=== PATIENT | male | born 1960 | race Caucasian/White ===

== ENCOUNTER 2024-08-30 07:43 | Observation (INO) ==
--- NOTE | 2024-08-30 08:03 | Emergency Department Note ---
HPI - Neuro Symptoms/Deficit General Chief Complaint: Facial Asymmetry/Drooping Stated Complaint: facial doop and tingling Time Seen by Provider: 08/30/24 07:45 Source: patient and EMS Mode of arrival: ambulance Limitations: no limitations History of Present Illness HPI Narrative: 64-year-old male presents to ER with complaint of right sided facial droop and tingling that was present when he awoke this morning, last known well was when he went to bed last night. On arrival patient has no trouble speaking, [facility], denies any weakness, mends exam is negative for any neurological deficits in his periphery; however, patient does have minor facial droop to the right side. Patient denies any chest pain but does have unifocal PVCs present on EKG. Onset (ago): unknown Last Observed Normal: 22:00 (When patient went to bed last night) Location: Reports right face History of same: No Severity: mild Quality: Reports numb, tingling and constant Relieving factors: Reports none Exacerbating factors: Reports none Context: Reports other (Awoke with symptoms) On Anticoagulants: No Associated symptoms: Reports denies other symptoms Treatments Prior to Arrival: Reports none Related Data Home Medications Medication Instructions Recorded Confirmed losartan 25 mg tablet 25 mg PO DAILY 08/30/24 08/30/24 metoprolol tartrate 25 mg tablet 25 mg PO Q12H 08/30/24 08/30/24 Allergies Allergy/AdvReac Type Severity Reaction Status Date / Time No Known Drug Allergies Allergy Verified 08/30/24 07:56 Review of Systems Status of ROS 10 or more systems reviewed and unremark able except as noted in history and below Constitutional Denies: fever, chills, change in weight, fatigue, malaise, night sweats or change in sleep pattern Eyes Denies: change in vision, blurry vision, blind spots, light sensitivity, eye discomfort, eye discharge, dry eyes, increased production of tears, floaters, seeing flashes or decreased night vision Ears, nose, mouth, and throat Denies: throat pain, neck pain, throat swelling, difficulty swallowing, hoarseness, mouth pain, swelling of lips/tongue, dry mouth, bad breath, ear pain, ear discharge, change in hearing, tinnitus, vertigo, nasal discharge, nasal congestion, nose bleeds or post nasal drip Cardiovascular Denies: chest pain, palpitations, edema, swelling of feet/ankles, lightheadedness, shortness of breath with exertion, shortness of breath when lying down, leg pain with exertion or bluish discoloration of hands/feet Respiratory Denies: shortness of breath, cough, wheezing, stridor, pain on inspiration, change in phlegm color, coughing up blood or chest congestion Gastrointestinal Denies: abdominal pain, nausea, vomiting, coffee grounds in vomit, heartburn, diarrhea, constipation, bloating, belching, excessive passing of gas, difficulty swallowing, feeling full early, change in bowel habits, painful bowel movements, rectal pain, rectal swelling, rectal itching, change in stool character, blood in stool, mucus in stool, white/light colored stool or fatty stool Genitourinary Denies: painful urination, urinary frequency, urinary urgency, blood in urine, genital pain, genital lesion, penile discharge, testicular pain, testicular mass, scrotal swelling, difficulty urinating, nighttime urination, change in urine stream, decreased urine ouput, difficulty starting urination, urinary hesitancy, urinary dribbling, difficulty with ejactulations, painful ejaculations, blood in semen, change in libido or difficulty impregnating Musculoskeletal Denies: back pain, neck pain, extremity pain, extremity swelling, joint pain, limited range of motion, joint swelling, muscle cramps, muscle weakness or loss of height Integumentary/Breast Denies: rash, itching, redness, skin pain, skin tenderness, skin swelling, sores, new lesion, changing lesion, non-healing lesion, changes in skin color, jaundice, stretch sanchez, acne, nail changes, change in hair, breast pain, breast swelling, nipple discharge, breast mass, breast skin changes or change in breast shape Neurological Reports: other (Right sided facial tingling with minor droop); Denies: headache, numbness in extremities, weakness in extremities, lack of coordination, dizziness, vertigo, confusion, behavioral changes, slurred speech, difficulty communicating thoughts, seizure-like activity or involuntary movements Psychiatric Reports: anxiety; Denies: mood swings, panic attacks, change in sleep pattern, hopelessness, loss of interest, irritability, paranoia, memory loss, difficulty concentrating, visual hallucinations, auditory hallucinations, tactile hallucinations, suicidal ideation or homicidal ideation Endocrine Denies: excessive urination, excessive thirst, fatigue, cold intolerance, excessive sweating, flushing, heat intolerance, deepening of the voice, change in body appearance or change in libido Hematologic/Lymphatic Denies: easy bruising, easy bleeding or enlarged lymph nodes Allergic/Immunologic Denies: hives, throat swelling, tongue swelling, facial swelling, wheezing, itchy eyes, seasonal allergies or food intolerance [facility] Medical History (Updated 02/01/24 @ 15:55 by Fred Harris RN) Hypertension Surgical History (Updated 02/01/24 @ 15:55 by Fred Harris RN) History of shoulder replacement Social History Smoking status: never smoker Feel stressed/tense/nervous/anxious/difficulty sleeping: not at all Life stressor details: n/a Exam Constitutional: normal general appearance, distress noted (mild), average body habitus, no limitations and alert Vital Signs - 24 hr 08/30/24 07:43 08/30/24 08:20 08/30/24 08:45 Temperature 98.1 F Pulse Rate 56 L 60 63 Respiratory Rate 20 Blood Pressure 170/78 177/87 162/81 Pulse Oximetry 99 99 98 Oxygen Delivery Me thod Room Air 08/30/24 09:15 08/30/24 09:45 08/30/24 10:15 Temperature Pulse Rate 64 66 66 Respiratory Rate Blood Pressure 165/88 161/91 168/91 Pulse Oximetry 97 99 99 Oxygen Delivery Me thod 08/30/24 10:45 08/30/24 11:15 08/30/24 11:45 Temperature Pulse Rate 65 67 67 Respiratory Rate Blood Pressure 167/86 166/79 162/75 Pulse Oximetry 98 99 Oxygen Delivery Me thod 08/30/24 12:08 08/30/24 12:15 08/30/24 12:45 Temperature Pulse Rate 67 81 Respiratory Rate Blood Pressure 171/99 185/98 135/77 Pulse Oximetry 98 99 Oxygen Delivery Me thod HENMT: normocephalic, head/scalp atraumatic, hearing grossly normal bilaterally, external ears normal, EACs normal, nasal mucous membranes normal, external nose normal, oral mucous membranes normal, oropharynx normal, dentition normal and gingiva normal Eyes: PERRL, EOMs intact bilaterally, conjunctivae normal, no scleral icterus, no papilledema, normal visual joy by confrontation, alignment normal, periorbital findings normal and no nystagmus Neck/C-Spine: visual inspection normal, trachea midline, cervical spine nontender, cervical full ROM noted and supple Lymph: no lymphadenopathy noted and no lymphedema noted Chest: inspection of chest normal, palpation of chest normal, inspection of breast(s) abnormal and palpation of breast(s) abnormal Respiratory: breath sounds equal bilaterally, normal respiratory effort, clear to auscultation bilaterally, no wheezes, no rales, no retractions and no use of accessory muscles Cardiovascular: heart rate abnormal (60) (bradycardic), regular rhythm noted, no gallop, no rub, no murmur, no JVD, no clicks, peripheral pulses 2+ throughout and no bruits noted Unifocal PVCs Gastrointestinal: abdomen normal to inspection, abdomen soft to palpation, nontender to palpation, nondistended, normoactive bowel sounds, no hepatosplenomegaly, no masses, no pulsatile mass, no ascites, no hernia and normal rectal exam (deferred) Genitourinary: no CVA tenderness, bladder normal to palpation, penis abnormal (deferred), uncircumcised, testes abnormal, meatus abnormal (deferred), scrotum abnormal (deferred) and inguinal lymphadenopathy noted Back/Pelvis: spine normal to inspection, no thoracic spine tenderness, no lumbar spine tenderness, thoracic spine ROM normal, lumbar spine ROM normal and no paraspinal muscle tenderness noted Extremities: normal to inspection, normal to palpation, no tenderness, full ROM, no joint enlargement and no deformity Neurology: head chopper II-XII intact, no movement abnormality noted, no focal motor deficit noted, no sensory deficits noted, gait normal, speech normal, coordination normal, no pronator drift noted, no fasciculations noted and GCS normal Patient reports minor tingling in right side of face with small amount of facial droop, no drooling noted, able to handle secretions without issue. Psychiatry: mental status grossly normal, oriented x3, thought process normal, cooperative, affect normal, psychomotor activity normal and memory normal Feel stressed/tense/nervous/anxious/difficulty sleeping: not at all Life stressor details: n/a Skin: skin color normal, no rash, no lesions, no ecchymosis noted, no wounds, no lacerations, skin turgor normal, no jaundice, no petechiae, no mottling, nails normal and no alopecia Course Course Hospital Course: 64-year-old male who presented to ER via EMS with complaint of right-sided facial numbness and seen with droop as well as unifocal PVCs has been evaluated by physical exam, CBC, CMP, troponin, repeat troponin, urinalysis, CT of the brain, EKG, and magnesium were results as noted in charting. Patient's facial droop is not completely resolved at this time. Is better than worse he reports tingling is better. Patient's troponin has remained static at 25-26 and PVCs remain present at this time. 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 Salinas who agrees patient should be admitted for rule out. Patient will be admitted to [facility] floor under observation status for MRI and TIA rule out as well as cardiac rule out. At length of stay is equal to or less than 2 midnights with disposition home. Patient and family agree with treatment plan. Consultations Consultation #1: Contacted Dr. Salinas's office at 10:30 AM for recommendations of admission or transfer and are awaiting callback at this time. [address] Salinas's office again concerning recommendation and was advised would receive a call back. [id number] Salinas's office and was advised that the admission was recommended for follow-up and evaluation for TIA versus stroke as well as cardiac rule out with overnight admission. Time: 13:30 Vital Signs Vital signs: Vital Signs Temperature 98.1 F 08/30/24 07:43 Pulse Rate 56 L 08/30/24 07:43 Respiratory Rate 20 08/30/24 07:43 Blood Pressure 170/78 08/30/24 07:43 Pulse Oximetry 99 08/30/24 07:43 Oxygen Delivery Method Room Air 08/30/24 07:43 Temperature 98.1 F 08/30/24 07:43 Pulse Rate 81 08/30/24 12:45 Respiratory Rate 20 08/30/24 07:43 Blood Pressure 135/77 08/30/24 12:45 Pulse Oximetry 99 08/30/24 12:45 Oxygen Delivery Method Room Air 08/30/24 07:43 MDM - Neuro Symptoms/Deficit MDM Narrative Medical decision making narrative: Medical Decision Making this patient above physical exam, CBC, CMP, serial troponins, urinalysis, magnesium, CT of the brain, plain film chest x-ray, and EKG. Differential Diagnosis Differential diagnosis: Likely subarachnoid hemorrhage, cerebrovascular accident, transient cerebral ischemia and other (Young's palsy) Medical Records Attestation: I reviewed the patient's medical records. Lab Data Attestation: I reviewed the patient's lab results. Labs: Lab Results 08/30/24 08/30/24 08/30/24 Range/Units 08:01 08:04 10:20 WBC 11.7 H (3.7-9.6) K/uL RBC 4.6 (4.40-5.80) M/uL Hgb 12.3 L (14.0-17.4) gm/dL Hct 37.1 L (41.3-50.1) % MCV 81.2 L (81.9-96.5) fl MCH 27.0 L (27.6-33.7) pg MCHC 33.3 (33.0-35.7) g/dl RDW 15.1 H (11.0-14.8) % Plt Count 311 (142-355) K/uL MPV 8.9 (6.0-10.4) fl Gran % 69.0 (49.1-73.1) % Lymph % (Auto) 20.7 (17.6-39.05) % Evans % (Auto) 8.6 (4.5-10.7) % Eos % (Auto) 1.3 (0.0-4.0) % Baso % (Auto) 0.4 (0.0-1.3) Lymph # (Auto) 2.4 (0.8-2.9) Evans # (Auto) 1.0 H (0.2-0.8) Eos # (Auto) 0.2 (0.0-0.3) Baso # (Auto) 0.0 (0.0-0.1) Absolute Gran (auto) 8.1 H (2.0-6.2) Sodium 141 (136-145) mmol/L Potassium 4.5 (3.6-5.2) mmol/L Chloride 106.0 (98-107) mmol/L Carbon Dioxide 26 (21-32) mmol/L Anion Gap 9.0 (4-14) mEq/L BUN 20 H (7-18) mg/dL Creatinine 1.1 (0.6-1.3) mg/dL Estimated GFR 75.4 (>59.9) Glucose 100 (70-110) mg/dL Calcium 8.7 (8.5-10.1) mg/dL Magnesium 2.2 (1.8-2.4) mg/dL Total Bilirubin 0.45 (0.0-1.0) mg/dL AST 15 (15-37) U/L ALT 25 L (30-65) U/L Alkaline Phosphatase 100 (50-136) U/L Troponin I High Sens 24.40 26.90 (4.0-60.4) ng/L Total Protein 6.4 (6.4-8.2) g/dL Albumin 3.2 L (3.4-5.0) g/dL Urine Color Yellow (STRAW/YELL.) Urine Appearance Clear (CLEAR) Ur Specific [place] 1.015 (1.001-1.035) Urine Protein Negative (NEGATIVE) Urine Glucose (UA) Normal (NORMAL) Urine Ketones Negative (NEGATIVE) Urine Occult Blood Negative (NEG - TRACE) Urine Nitrite Negative (NEGATIVE) Urine Bilirubin Negative (NEGATIVE) Urine Urobilinogen Normal (NORMAL) Ur Leukocyte Esterase Negative (NEGATIVE) Fluid pH 6.0 (5 - 9) Imaging Data Imaging ordered: Chest x-ray and CT scan - head Attestation: I have reviewed the pertinent imaging results. Radiologist's impression: EXAM: Portable chest HISTORY: Dyspnea, speech difficulty, facial numbness COMPARISON: CT chest 02/01/2024 FINDINGS: Heart is within normal limits in size. [place]ell are normal. Lung joy are clear. No pleural effusions or pneumothoraces identified. Bony thorax is unremarkable. IMPRESSION: No significant abnormality identified THIS IS AN ELECTRONICALLY VERIFIED FINAL REPORT 08/30/2024 8:20 AM - Electronically signed by Raz Nunez MD EXAM: CT head without contrast HISTORY: Right-sided facial numbness TECHNIQUE: Axial noncontrast images with coronal and sagittal reformats. Dose reduction procedures were used with mA/kv adjusted for body size. COMPARISON: None FINDINGS: Ventricles are normal in size shape and position. There are no focal areas of abnormal attenuation to suggest recent or remote CVA, hemorrhage, mass lesion, or extra-axial fluid collection. Lopez matter white matter differentiation is maintained. Visualized sinuses are clear. Calvarium is intact. If acute CVA is a strong clinical consideration MRI with diffusion imaging may be of further diagnostic value and should be considered. IMPRESSION: No significant intracranial abnormality identified. See recommendation as above THIS IS AN ELECTRONICALLY VERIFIED FINAL REPORT 08/30/2024 8:18 AM - Electronically signed by Raz Nunez MD ECG Data Attestation: I have reviewed the pertinent ECG results. Interpretation: Sinus bradycardia rate 65 Multiple PVC complexes unifocal in nature, RR 1168 MS 204 P axis 42 QRS -7 T 11 Discharge Plan Discharge Patient Disposition: Admitted As Observation Condition: Improved Chief Complaint: Facial Asymmetry/Drooping Clinical Impression: Transient cerebral ischemia, Cardiac arrhythmia, Hypertension Prescriptions: No Action metoprolol tartrate 25 mg tablet 25 mg PO Q12H Patient Comments: TAKE 1 TABLET BY MOUTH TWICE A DAY losartan 25 mg tablet 25 mg PO DAILY Patient Comments: TAKE 1 TABLET BY MOUTH EVERY DAY Print Language: Bur[place]ian Referrals: Delfin White MD [Primary Care Provider] - Time of Disposition: 10:30
[2024-08-30 08:05] LABS: Basophils%(Percent) Auto 0.4 (0.0-1.3); Eosinophils#(Absolute)Auto 0.2 (0.0-0.3); Eosinophils%(Percent) Auto 1.3 % (0.0-4.0); Granulocytes#(Absolute)- Auto 8.1 (2.0-6.2); Hematocrit 37.1 % (41.3-50.1); Mean Corpuscular Volume 81.2 fl (81.9-96.5); Monocytes %(Percent)- Auto 8.6 % (4.5-10.7); Platelet Count 311 K/uL (142-355); White Blood Count 11.7 K/uL (3.7-9.6)
[2024-08-30 08:09] LABS: Specific Gravity Urine 1.015 (1.001-1.035); Urine Appearance CLEAR (CLEAR); Urine Blood NEGATIVE (NEG - TRACE); Urine Color YELLOW (STRAW/YELL.); Urine Urobilinogen Normal (NORMAL)
[2024-08-30 08:13] LABS: Potassium 4.5 mmol/L (3.6-5.2)
[2024-08-30] MEDS: HYDRALAZINE HCL 20 MG/ML VIAL IVP ONE (12:08)
[2024-08-30] MEDS ORDERED: ONDANSETRON HCL/PF 4 MG/2 ML VIAL ONE (13:03)
[2024-08-30] MEDS ORDERED: bisacodyL 10 MG SUPP.RECT PR PRN (14:16)
[2024-08-30] MEDS ORDERED: ONDANSETRON HCL/PF 4 MG/2 ML VIAL INJ PRN (14:16)
[2024-08-30] MEDS ORDERED: MORPHINE SULFATE 4 MG/ML CARTRIDGE IV PRN (14:16)
[2024-08-30] MEDS ORDERED: KETOROLAC 30 MG/ML INJ VIAL IVP PRN (14:16)
[2024-08-30 17:56] LABS: Amphetamine Screen Urine NEG. (NEGATIVE); Cannabinoid Screen Urine NEG. (NEGATIVE); Cocaine Screen Urine NEG. (NEGATIVE); Methadone Screen Urine NEG. (NEGATIVE); Opiate Screen Urine NEG. (NEGATIVE)
[2024-08-30] MEDS: LOSARTAN 25 MG PO SCH (18:00)
--- NOTE | 2024-08-30 18:17 | History & Physical Report ---
H&P: HPI History of Present Illness Chief complaint: Unresolved TIA, cardiac rule out, elevated trop Narrative: 64-year-old male presents to ER with complaint of right sided facial droop and tingling that was present when he awoke this morning, last known well was when he went to bed last night. On arrival to work his coworkers insisted he come to the ER for treatment and 911 was called and EMS brought patient into the ER. On arrival patient has no trouble speaking, he was [facility], denies any weakness, mends exam is negative for any neurological deficits in his periphery; however, patient does have minor facial droop to the right side. Patient denies any chest pain but does have unifocal PVCs present on EKG and no issues with recall nor speech nor any other wekaness that he has noted. Patient had lethargy, confusion and worsening right face and arm weakness after arrival to the floor. BP was noted to be 115/70's and heart rate in the 60's and this is a large change from initial BP and the BP in the ER. Review of Systems Status of ROS 10 or more systems reviewed and unremark able except as noted in history and below Constitutional Denies: fever, chills, change in weight, fatigue, malaise, night sweats or change in sleep pattern Eyes Reports: dry eyes (right); Denies: change in vision, blurry vision, blind spots, light sensitivity, eye discomfort, eye discharge, increased production of tears, floaters, seeing flashes or decreased night vision Ears, nose, mouth, and throat Denies: throat pain, neck pain, throat swelling, difficulty swallowing, hoarseness, mouth pain, swelling of lips/tongue, dry mouth, bad breath, ear pain, ear discharge, change in hearing, tinnitus, vertigo, nasal discharge, nasal congestion, nose bleeds or post nasal drip Cardiovascular Denies: chest pain, palpitations, edema, swelling of feet/ankles, lightheadedness, shortness of breath with exertion, shortness of breath when lying down, leg pain with exertion or bluish discoloration of hands/feet Respiratory Denies: shortness of breath, cough, wheezing, stridor, pain on inspiration, change in phlegm color, coughing up blood or chest congestion Gastrointestinal Denies: abdominal pain, nausea, vomiting, coffee grounds in vomit, heartburn, diarrhea, constipation, bloating, belching, excessive passing of gas, difficulty swallowing, feeling full early, change in bowel habits, painful bowel movements, rectal pain, rectal swelling, rectal itching, change in stool character, blood in stool, mucus in stool, white/light colored stool or fatty stool Genitourinary Denies: painful urination, urinary frequency, urinary urgency, blood in urine, genital pain, genital lesion, penile discharge, testicular pain, testicular mass, scrotal swelling, difficulty urinating, nighttime urination, change in urine stream, decreased urine ouput, difficulty starting urination, urinary hesitancy, urinary dribbling, difficulty with ejactulations, painful ejaculations, blood in semen, change in libido or difficulty impregnating Musculoskeletal Reports: muscle weakness (right facial and forehead equal); Denies: back pain, neck pain, extremity pain, extremity swelling, joint pain, limited range of motion, joint swelling, muscle cramps or loss of height Integumentary/Breast Denies: rash, itching, redness, skin pain, skin tenderness, skin swelling, sores, new lesion, changing lesion, non-healing lesion, changes in skin color, jaundice, stretch sanchez, acne, nail changes, change in hair, breast pain, breast swelling, nipple discharge, breast mass, breast skin changes or change in breast shape Neurological Reports: dizziness, confusion (noted after arrival to floor), difficulty communicating thoughts (after arrival to floor non noted in the ER, garbled speech ) and other (Right sided facial tingling with minor droop); Denies: headache, numbness in extremities, weakness in extremities, lack of coordination, vertigo, behavioral changes, slurred speech, seizure-like activity or involuntary movements Psychiatric Reports: anxiety and irritability; Denies: mood swings, panic attacks, change in sleep pattern, hopelessness, loss of interest, paranoia, memory loss, difficulty concentrating, visual hallucinations, auditory hallucinations, tactile hallucinations, suicidal ideation or homicidal ideation Endocrine Denies: excessive urination, excessive thirst, fatigue, cold intolerance, excessive sweating, flushing, heat intolerance, deepening of the voice, change in body appearance or change in libido Hematologic/Lymphatic Denies: easy bruising, easy bleeding or enlarged lymph nodes Allergic/Immunologic Denies: hives, throat swelling, tongue swelling, facial swelling, wheezing, itchy eyes, seasonal allergies or food intolerance [facility] History (Updated 08/30/24 @ 18:10 by Lashawn Cochran DO) Confusion Frequent PVCs Bradycardia Hypertension Surgical History History of shoulder replacement Social History Smoking status: never smoker Problems where you live: no known problems Highest level of school completed/degree received: College Feel stressed/tense/nervous/anxious/difficulty sleeping: not at all Life stressor details: n/a Meds Home Medications and Allergies Home Medications Medication Instructions Recorded Confirmed Type losartan 25 mg tablet 25 mg PO DAILY 08/30/24 08/30/24 History metoprolol tartrate 25 mg tablet 25 mg PO Q12H 08/30/24 08/30/24 History Allergies Allergy/AdvReac Type Severity Reaction Status Date / Time No Known Drug Allergies Allergy Verified 08/30/24 07:56 Exam Constitutional: abnormal general appearance (disheveled), distress noted (mild), average body habitus, limitations noted (physical limitations) and alert Vital Signs - 24 hr 08/30/24 07:43 08/30/24 08:20 08/30/24 08:45 Temperature 98.1 F Pulse Rate 56 L 60 63 Pulse Rate [Left] Respiratory Rate 20 Blood Pressure 170/78 177/87 162/81 Blood Pressure [Le ft Arm] Pulse Oximetry 99 99 98 Oxygen Delivery Me thod Room Air 08/30/24 09:15 08/30/24 09:45 08/30/24 10:15 Temperature Pulse Rate 64 66 66 Pulse Rate [Left] Respiratory Rate Blood Pressure 165/88 161/91 168/91 Blood Pressure [Le ft Arm] Pulse Oximetry 97 99 99 Oxygen Delivery Me thod 08/30/24 10:45 08/30/24 11:15 08/30/24 11:45 Temperature Pulse Rate 65 67 67 Pulse Rate [Left] Respiratory Rate Blood Pressure 167/86 166/79 162/75 Blood Pressure [Le ft Arm] Pulse Oximetry 98 99 Oxygen Delivery Me thod 08/30/24 12:08 08/30/24 12:15 08/30/24 12:45 Temperature Pulse Rate 67 81 Pulse Rate [Left] Respiratory Rate Blood Pressure 171/99 185/98 135/77 Blood Pressure [Le ft Arm] Pulse Oximetry 98 99 Oxygen Delivery Me thod 08/30/24 14:53 08/30/24 14:56 08/30/24 16:06 Temperature 97.6 F Pulse Rate 77 Pulse Rate [Left] 71 Respiratory Rate 17 19 18 Blood Pressure 151/70 Blood Pressure [Le ft Arm] 158/67 Pulse Oximetry 100 99 Oxygen Delivery Me thod Room Air Room Air HENMT: normocephalic, head/scalp atraumatic, hearing grossly normal bilaterally, external ears normal, EACs normal, TMs normal bilaterally, nasal mucous membranes normal, external nose normal, oral mucous membranes normal, oropharynx normal, dentition normal and gingiva normal Eyes: PERRL, EOMs intact bilaterally, conjunctivae normal, no scleral icterus, no papilledema, normal visual joy by confrontation, fundi normal bilaterally, alignment normal, periorbital findings normal and no nystagmus Neck/C-Spine: trachea midline, cervical spine nontender, abnormal cervical ROM noted, supple, no meningeal signs, thyroid normal and no carotid bruits Lymph: no lymphadenopathy noted and no lymphedema noted Chest: inspection of chest normal and palpation of chest normal Respiratory: breath sounds equal bilaterally, normal respiratory effort, clear to auscultation bilaterally, no wheezes, no rales, no retractions and no use of accessory muscles Cardiovascular: heart rate abnormal (60 bradycardic) (bradycardic), regular rhythm noted, no gallop, no rub, no murmur, no JVD, no clicks, peripheral pulses 2+ throughout and no bruits noted Unifocal PVCs Gastrointestinal: abdomen soft to palpation, nontender to palpation, nondistended, normoactive bowel sounds, no hepatosplenomegaly, no masses, no pulsatile mass, no ascites, no hernia and normal rectal exam (deferred) obese Genitourinary: no CVA tenderness, bladder normal to palpation, penis abnormal (deferred), uncircumcised, testes abnormal, meatus abnormal (deferred), scrotum abnormal (deferred) and inguinal lymphadenopathy noted Back/Pelvis: spine normal to inspection, no thoracic spine tenderness, no lumbar spine tenderness, thoracic spine ROM normal, lumbar spine ROM normal and no paraspinal muscle tenderness noted Extremities: normal to inspection, normal to palpation, no tenderness, full ROM, no joint enlargement and no deformity 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 right arm drooping although moves Psychiatry: Mental Status Exam documented within this Exam's Psych section mental status grossly normal, oriented x3, thought process abnormality noted (confused), cooperative, affect abnormality noted (depressed), psychomotor activity normal and memory normal Feel stressed/tense/nervous/anxious/difficulty sleeping: not at all Life stressor details: n/a Skin: skin color normal, no rash, no lesions, no ecchymosis noted, no wounds, no lacerations, skin turgor normal, no jaundice, no petechiae, no mottling, nails normal and alopecia noted Assessment and Plan Assessment and Plan (1) Hypertensive urgency: Code(s): I16.0 - Hypertensive urgency (2) Weakness on right side of face: Code(s): R29.810 - Facial weakness (3) Bradycardia: Code(s): R00.1 - Bradycardia, unspecified (4) Frequent PVCs: Code(s): I49.3 - Ventricular premature depolarization (5) Confusion: Code(s): R41.0 - Disorientation, unspecified Plan 0.9 ns at 100 ml per hour Aggrenox daily lipitor 20 mg every day flp now tsh now EKG and trop every 6 hours and prn neuro checks per protocol every 1 hour until stable then every 4 hours and prn cardiac monitoring and cont pulse ox MRI of the head once approved worsening of symptoms so will do CTA of head and neck with contrast and look for offending areas ECHO in the am restart home losartan and Metoprolol at scheduled times coming up POC glucose since worsening and now dizziness and not eaten alll day Results Labs Labs: CBC WBC 11.7 K/uL (3.7-9.6) H 08/30/24 08:01 RBC 4.6 M/uL (4.40-5.80) 08/30/24 08:01 Hgb 12.3 gm/dL (14.0-17.4) L 08/30/24 08:01 Hct 37.1 % (41.3-50.1) L 08/30/24 08:01 MCV 81.2 fl (81.9-96.5) L 08/30/24 08:01 MCH 27.0 pg (27.6-33.7) L 08/30/24 08:01 MCHC 33.3 g/dl (33.0-35.7) 08/30/24 08:01 RDW 15.1 % (11.0-14.8) H 08/30/24 08:01 Plt Count 311 K/uL (142-355) 08/30/24 08:01 MPV 8.9 fl (6.0-10.4) 08/30/24 08:01 Gran % 69.0 % (49.1-73.1) 08/30/24 08:01 Lymph % (Auto) 20.7 % (17.6-39.05) 08/30/24 08:01 Valley % (Auto) 8.6 % (4.5-10.7) 08/30/24 08:01 Eos % (Auto) 1.3 % (0.0-4.0) 08/30/24 08:01 Baso % (Auto) 0.4 (0.0-1.3) 08/30/24 08:01 Lymph # (Auto) 2.4 (0.8-2.9) 08/30/24 08:01 Valley # (Auto) 1.0 (0.2-0.8) H 08/30/24 08:01 Eos # (Auto) 0.2 (0.0-0.3) 08/30/24 08:01 Baso # (Auto) 0.0 (0.0-0.1) 08/30/24 08:01 Absolute Gran (auto) 8.1 (2.0-6.2) H 08/30/24 08:01 BMP Sodium 141 mmol/L (136-145) 08/30/24 08:01 Potassium 4.5 mmol/L (3.6-5.2) 08/30/24 08:01 Chloride 106.0 mmol/L (98-107) 08/30/24 08:01 Carbon Dioxide 26 mmol/L (21-32) 08/30/24 08:01 Anion Gap 9.0 mEq/L (4-14) 08/30/24 08:01 BUN 20 mg/dL (7-18) H 08/30/24 08:01 Creatinine 1.1 mg/dL (0.6-1.3) 08/30/24 08:01 Estimated GFR 75.4 (>59.9) 08/30/24 08:01 Glucose 100 mg/dL (70-110) 08/30/24 08:01 Calcium 8.7 mg/dL (8.5-10.1) 08/30/24 08:01 Magnesium 2.2 mg/dL (1.8-2.4) 08/30/24 08:01 Total Bilirubin 0.45 mg/dL (0.0-1.0) 08/30/24 08:01 AST 15 U/L (15-37) 08/30/24 08:01 ALT 25 U/L (30-65) L 08/30/24 08:01 Alkaline Phosphatase 100 U/L (50-136) 08/30/24 08:01 Total Protein 6.4 g/dL (6.4-8.2) 08/30/24 08:01 Albumin 3.2 g/dL (3.4-5.0) L 08/30/24 08:01 Cardiac Enzymes Troponin I High Sens 24.30 ng/L (4.0-60.4) 08/30/24 15:40 Liver Function Total Bilirubin 0.45 mg/dL (0.0-1.0) 08/30/24 08:01 AST 15 U/L (15-37) 08/30/24 08:01 ALT 25 U/L (30-65) L 08/30/24 08:01 Alkaline Phosphatase 100 U/L (50-136) 08/30/24 08:01 Total Protein 6.4 g/dL (6.4-8.2) 08/30/24 08:01 Albumin 3.2 g/dL (3.4-5.0) L 08/30/24 08:01 Urine Urine Color Yellow (STRAW/YELL.) 08/30/24 08:04 Urine Appearance Clear (CLEAR) 08/30/24 08:04 Ur Specific [place] 1.015 (1.001-1.035) 08/30/24 08:04 Urine Protein Negative (NEGATIVE) 08/30/24 08:04 Urine Glucose (UA) Normal (NORMAL) 08/30/24 08:04 Urine Ketones Negative (NEGATIVE) 08/30/24 08:04 Urine Occult Blood Negative (NEG - TRACE) 08/30/24 08:04 Urine Nitrite Negative (NEGATIVE) 08/30/24 08:04 Urine Bilirubin Negative (NEGATIVE) 08/30/24 08:04 Urine Urobilinogen Normal (NORMAL) 08/30/24 08:04 Ur Leukocyte Esterase Negative (NEGATIVE) 08/30/24 08:04 Pulse Oximetry Attestation: I have reviewed the pertinent pulse oximetry results. ECG Attestation: I have reviewed the pertinent ECG results. Prior ECG tracings: available for review Imaging Imaging ordered: Chest x-ray and CT scan - head Radiologist's impression: CT head without contrast HISTORY: Right-sided facial numbness TECHNIQUE: Axial noncontrast images with coronal and sagittal reformats. Dose reduction procedures were used with mA/kv adjusted for body size. COMPARISON: None FINDINGS: Ventricles are normal in size shape and position. There are no focal areas of abnormal attenuation to suggest recent or remote CVA, hemorrhage, mass lesion, or extra-axial fluid collection. Lopez matter white matter differentiation is maintained. Visualized sinuses are clear. Calvarium is intact. If acute CVA is a strong clinical consideration MRI with diffusion imaging may be of further diagnostic value and should be considered. IMPRESSION: No significant intracranial abnormality identified. See recommendation as above EXAM: Portable chest HISTORY: Dyspnea, speech difficulty, facial numbness COMPARISON: CT chest 02/01/2024 FINDINGS: Heart is within normal limits in size. [place]ell are normal. Lung joy are clear. No pleural effusions or pneumothoraces identified. Bony thorax is unremarkable. IMPRESSION: No significant abnormality identified
[2024-08-30 18:37] LABS: Potassium 4.2 mmol/L (3.6-5.2)
[2024-08-30] MEDS: ENOXAPARIN SODIUM 40 MG/0.4 ML SYRINGE SUBQ SCH (18:45)
[2024-08-30] MEDS: LOSARTAN POTASSIUM 50 MG TABLET PO SCH (19:07)
[2024-08-30] MEDS: METOPROLOL TARTRATE 25 MG TABLET PO SCH ×2 (19:07→22:25)
--- NOTE | 2024-08-30 20:24 | Event Note ---
Event Note Event Note: 2014 - I was notified by the nursing staff that this patient's CTA noted IMPRESSION: 1. THIS EXAM IS LIMITED DUE TO EXTENSIVE AMOUNT OF BEAM HARDENING ARTIFACT COMING FROM THE LEFT SIDE OF THE PATIENT AND FROM THE BOLUS CONTRAST. 2. THERE IS AN 80% SUBCENTIMETER STENOSIS SECONDARY TO A SOFT TISSUE PLAQUE IN THE DISTAL SEGMENT OF THE LEFT COMMON CAROTID ARTERY JUST PROXIMAL TO THE BIFURCATION. THIS COULD BE RESULTING IN DISTAL EMBOLIC INFARCTION OF THE LEFT CEREBRAL HEMISPHERE. PLEASE CLINICALLY CORRELATE WITH RIGHT-SIDED WEAKNESS. FOLLOW-UP WITH MRI OF THE BRAIN MAY BE OBTAINED IF THIS IS FELT TO BE CLINICALLY INDICATED. THIS IS AN ELECTRONICALLY VERIFIED FINAL REPORT 08/30/2024 7:22 PM - Electronically signed by Elieser Bello MD The nurse states that Dr. Cochran was called and advised to ask the ER provider to transfer this paitnet to [facility]. I called the transfer Center @ requesting a transfer.
--- NOTE | 2024-08-30 20:28 | Event Note ---
Event Note Event Note: 2024 - I spoke with Dr. Robert Myers of the [facility] - and he gladly accepted the patient.
[2024-08-30 21:02] VITALS: BP 131/79; PULSE 57; RESP 16; TEMP 98.2
[2024-08-30] MEDS: [UNRECOGNIZED DRUG - OTHER] IV SCH (21:45)
[2024-08-30 22:12] LABS: INR 1.19
[2024-08-30] MEDS: [UNRECOGNIZED DRUG - OTHER] IV ONE (23:33)
[2024-08-31] MEDS ORDERED: PANTOPRAZOLE SODIUM 40 MG TABLET.DR PO SCH (09:00)
[2024-08-31] MEDS ORDERED: LOSARTAN POTASSIUM 50 MG TABLET PO SCH (09:00)
--- NOTE | 2024-08-31 15:22 | Discharge Summary ---
DS: Providers Provider Date of admission: 08/30/24 14:16 Primary care physician: Delfin White MD Admitting clinician: Gerardo Foss Attending physician on admission: Lashawn Cochran Attending physician on discharge: Lashawn Cochran Discharging clinician: Lashawn Cochran Anticipated date of discharge: 08/30/24 DS: Diagnosis Discharge Diagnosis (1) TIA (transient ischemic attack): (2) Hypertensive urgency: (3) Weakness on right side of face: (4) Bradycardia: (5) Frequent PVCs: (6) Confusion: Plan Patient condition worsened while on floor. Transferred out to [facility] in [place] due to new stroke. DS: Summary Hospital Course Hospital Course: 64-year-old male who presented to ER via EMS with complaint of right-sided facial numbness and seen with droop as well as unifocal PVCs has been evaluated by physical exam, CBC, CMP, troponin, repeat troponin, urinalysis, CT of the brain, EKG, and magnesium were results as noted in charting. Patient's facial droop is not completely resolved at this time. Is better than worse he reports tingling is better. Patient's troponin has remained static at 25-26 and PVCs remain present at this time. Consulted with patient's harness maker Dr. Salinas who agrees patient should be admitted for rule out. Patient will be admitted to MedSurg floor under observation status for MRI and TIA rule out as well as cardiac rule out. Patient condition worsened after arriving to the med/surg floor. ED provider was notified, CT was ordered and shows a new TIA. Transfer orders were initiated for a higher level of care facility. Patient was accepted at [facility] in [place]. Report was given and patient was transferred via ambulance. Status at Discharge Overall status at discharge: patient is back to baseline Time Spent with Patient Time attestation: Total time spent providing and/or coordinating discharge services: Exam Constitutional: abnormal general appearance (disheveled), distress noted (mild), average body habitus, limitations noted (physical limitations) and alert Vital Signs - 24 hr 08/30/24 16:06 08/30/24 20:00 Temperature 98.2 F Pulse Rate [Left] 57 L Respiratory Rate 18 16 Blood Pressure [Le ft Arm] 131/79 Oxygen Delivery Me thod Room Air HENMT: normocephalic, head/scalp atraumatic, hearing grossly normal bilaterally, external ears normal, EACs normal, TMs normal bilaterally, nasal mucous membranes normal, external nose normal, oral mucous membranes normal, oropharynx normal, dentition normal and gingiva normal Eyes: PERRL, EOMs intact bilaterally, conjunctivae normal, no scleral icterus, no papilledema, normal visual joy by confrontation, fundi normal bilaterally, alignment normal, periorbital findings normal and no nystagmus Neck/C-Spine: visual inspection normal, trachea midline, cervical spine nontender, abnormal cervical ROM noted, supple, no meningeal signs, thyroid normal and no carotid bruits Lymph: no lymphadenopathy noted and no lymphedema noted Chest: inspection of chest normal, palpation of chest normal, inspection of breast(s) abnormal and palpation of breast(s) abnormal Respiratory: breath sounds equal bilaterally, normal respiratory effort, clear to auscultation bilaterally, no wheezes, no rales, no retractions and no use of accessory muscles Cardiovascular: heart rate abnormal (60 bradycardic) (bradycardic), regular rhythm noted, no gallop, no rub, no murmur, no JVD, no clicks, peripheral pulses 2+ throughout and no bruits noted Unifocal PVCs Gastrointestinal: abdomen normal to inspection, abdomen soft to palpation, nontender to palpation, nondistended, normoactive bowel sounds, no hepatosplenomegaly, no masses, no pulsatile mass, no ascites, no hernia and normal rectal exam (deferred) obese Genitourinary: no CVA tenderness, bladder normal to palpation, penis abnormal (deferred), uncircumcised, testes abnormal, meatus abnormal (deferred), scrotum abnormal (deferred) and inguinal lymphadenopathy noted Back/Pelvis: spine normal to inspection, no thoracic spine tenderness, no lumbar spine tenderness, thoracic spine ROM normal, lumbar spine ROM normal and no paraspinal muscle tenderness noted Extremities: normal to inspection, normal to palpation, no tenderness, full ROM, no joint enlargement and no deformity Neurology: environmental health and safety manager II-XII intact, no movement abnormality noted, focal motor deficit noted, no sensory deficits noted, deep tendon reflexes 2+ bilaterally, gait abnormality noted (wide-based), speech normal, coordination normal, pronator drift noted (right), no fasciculations noted and GCS normal Patient reports minor tingling in right side of face with small amount of facial droop, no drooling noted, able to handle secretions without issue. right arm drooping although moves Psychiatry: Mental Status Exam documented within this Exam's Psych section mental status grossly normal, oriented x3, thought process abnormality noted (confused), cooperative, affect abnormality noted (depressed), psychomotor a ctivity normal and memory normal Skin: skin color normal, no rash, no lesions, no ecchymosis noted, no wounds, no lacerations, skin turgor normal, no jaundice, no petechiae, no mottling, nails normal and alopecia noted DS: Data Data Completed and Pending Labs on day of discharge: Labs from last 24 hours 08/30/24 08/30/24 08/30/24 21:50 18:10 15:40 PT 15.7 H PT Normal Control 13.7 INR 1.19 APTT 30.9 Sodium 141 Potassium 4.2 Chloride 105.0 Carbon Dioxide 26 Anion Gap 10.0 BUN 18 Creatinine 1.0 Estimated GFR 84.6 Glucose 114 H Calcium 8.3 L Phosphorus 3.1 Magnesium 2.2 Total Bilirubin 0.40 AST 15 ALT 27 L Alkaline Phosphatase 92 Troponin I High Sens 23.10 23.10 24.30 Total Protein 6.0 L Albumin 3.0 L Urine Opiates Screen Urine Methadone Screen Barbiturate Screen Ur Phencyclidine Scrn Amphetamines Screen U Benzodiazepines Scrn Urine Cocaine Screen U Marijuana (THC) Screen 08/30/24 08:04 PT PT Normal Control INR APTT Sodium Potassium Chloride Carbon Dioxide Anion Gap BUN Creatinine Estimated GFR Glucose Calcium Phosphorus Magnesium Total Bilirubin AST ALT Alkaline Phosphatase Troponin I High Sens Total Protein Albumin Urine Opiates Screen Neg. Urine Methadone Screen Neg. Barbiturate Screen Neg. Ur Phencyclidine Scrn Neg. Amphetamines Screen Neg. U Benzodiazepines Scrn Neg. Urine Cocaine Screen Neg. U Marijuana (THC) Screen Neg. Imaging CT scan - head: Radiologist's impression: CT head without contrast Date of Service: 08/30/24 HISTORY: Right-sided facial numbness TECHNIQUE: Axial noncontrast images with coronal and sagittal reformats. Dose reduction procedures were used with mA/kv adjusted for body size. COMPARISON: None FINDINGS: Ventricles are normal in size shape and position. There are no focal areas of abnormal attenuation to suggest recent or remote CVA, hemorrhage, mass lesion, or extra-axial fluid collection. Lopez matter white matter differentiation is maintained. Visualized sinuses are clear. Calvarium is intact. If acute CVA is a strong clinical consideration MRI with diffusion imaging may be of further diagnostic value and should be considered. IMPRESSION: No significant intracranial abnormality identified. See recommendation as above CT HEAD/BRAIN WO CON Date of Service: 08/30/24 HISTORY: RIGHT SIDED WEAKNESS, SLURRED SPEECH; CV/NB COMPARISON: CT of the head August 30, 2024 8:02 a[address]m. TECHNIQUE: CT of the head without contrast FINDINGS: There is subtle hypodensity in the left myers radiata worrisome for ischemia. Correlation with MRI is advised. No hemorrhage or extra-axial collection. No midline shift or mass effect. Appropriate ventricular size. No sinus air-fluid levels. The mastoid air cells are clear. Zygomatic arches are intact. No skull fracture. IMPRESSION: Subtle hypodensity left myers radiata worrisome for ischemia. Correlation with diffusion-weighted MRI is advised. No hemorrhagic transformation. Chest x-ray: Radiologist's impression: Portable chest Date of Service: 08/30/24 HISTORY: Dyspnea, speech difficulty, facial numbness COMPARISON: CT chest 02/01/2024 FINDINGS: Heart is within normal limits in size. Anabell are normal. Lung joy are clear. No pleural effusions or pneumothoraces identified. Bony thorax is unremarkable. IMPRESSION: No significant abnormality identified Head/Neck CTA: Radiologist's impression: CTA HEAD AND NECK WITH IV CONTRAST Date of Service: 08/30/24 HISTORY: Weakness COMPARISON: None. TECHNIQUE: Axial images were acquired of the head and neck with IV contrast for a CT angiogram. Coronal and sagittal images were provided. All images were reviewed in a variety of windows and levels. 3D MIPS were performed and reviewed. RADIATION REDUCTION TECHNIQUE: Automated exposure control, Adjustment of the mA and/or kV according to patient size, or iterative reconstruction techniques were used. FINDINGS: This exam is limited due to extensive amount of beam hardening artifact coming from the left side of the patient and from the bolus contrast. NECK: AORTIC ARCH: patent without significant disease. BRACHIOCEPHALIC ARTERY: Can not be assessed on this exam LEFT SUBCLAVIA ARTERY: Can not be assessed on this exam RIGHT COMMON CAROTID ARTERY: Proximal segment of the right common carotid artery can not be assessed on this examination. Remaining visualized portions of the right common carotid artery is patent. LEFT COMMON CAROTID ARTERY: Proximal segment of the left common carotid artery can not be assessed on this examination. Remaining visualized portions of the left common carotid artery is patent. There is an 80% subcentimeter stenosis secondary to a soft tissue plaque in the distal segment of the left common carotid artery just proximal to the bifurcation. RIGHT INTERNAL CAROTID ARTERY: patent without significant disease. LEFT INTERNAL CAROTID ARTERY: patent without significant disease. VERTEBRAL ARTERIES: Proximal segments of the right vertebral arteries can not be assessed on this examination. Remaining visualized vertebral arteries are patent. BASILAR ARTERY: patent without significant disease. HEAD: LEFT ICA: The distal cervical, petrous, cavernous, and supraclinoid segment of the left internal carotid artery is patent without significant stenosis or other vascular abnormalities. RIGHT ICA: The distal cervical, petrous, cavernous, and supraclinoid segment of the right internal carotid artery is patent without significant stenosis or other vascular abnormalities. ANTERIOR CIRCULATION: The anterior cerebral arteries, middle cerebral arteries, and anterior communicating artery are unremarkable. POSTERIOR CIRCULATION: The posterior cerebral arteries are unremarkable. The intracranial segment of the vertebral arteries and the basilar artery are unremarkable. NON ANGIOGRAPHIC FINDINGS: Visualized lung parenchyma is clear. There are no abnormal masses within the visualized spaces of the neck. The thyroid gland is unremarkable. Visualized osseous structures demonstrate degenerative changes. IMPRESSION: 1. THIS EXAM IS LIMITED DUE TO EXTENSIVE AMOUNT OF BEAM HARDENING ARTIFACT COMING FROM THE LEFT SIDE OF THE PATIENT AND FROM THE BOLUS CONTRAST. 2. THERE IS AN 80% SUBCENTIMETER STENOSIS SECONDARY TO A SOFT TISSUE PLAQUE IN THE DISTAL SEGMENT OF THE LEFT COMMON CAROTID ARTERY JUST PROXIMAL TO THE BIFURCATION. THIS COULD BE RESULTING IN DISTAL EMBOLIC INFARCTION OF THE LEFT CEREBRAL HEMISPHERE. PLEASE CLINICALLY CORRELATE WITH RIGHT-SIDED WEAKNESS. FOLLOW-UP WITH MRI OF THE BRAIN MAY BE OBTAINED IF THIS IS FELT TO BE CLINICALLY INDICATED. Discharge Plan Discharge Disposition: er Acute Care Hospital Discharge Medications: No Action metoprolol tartrate 25 mg tablet 25 mg PO Q12H Patient Comments: TAKE 1 TABLET BY MOUTH TWICE A DAY losartan 25 mg tablet 25 mg PO DAILY Patient Comments: TAKE 1 TABLET BY MOUTH EVERY DAY Discharge Orders: Discharge Order (Routine); Ordered 08/31/24 Ordered By: [facility] Course: 64-year-old male who presented to ER via EMS with complaint of right-sided facial numbness and seen with droop as well as unifocal PVCs has been evaluated by physical exam, CBC, CMP, troponin, repeat troponin, urinalysis, CT of the brain, EKG, and magnesium were results as noted in charting. Patient's facial droop is not completely resolved at this time. Is better than worse he reports tingling is better. Patient's troponin has remained static at 25-26 and PVCs remain present at this time. Consulted with patient's harness maker Dr. Salinas who agrees patient should be admitted for rule out. Patient will be admitted to MedSurg floor under observation status for MRI and TIA rule out as well as cardiac rule out. Patient condition worsened after arriving to the med/surg floor. ED provider was notified, CT was ordered and shows a new TIA. Transfer orders were initiated for a higher level of care facility. Patient was accepted at [facility] in [place]. Report was given and patient was transferred via ambulance. Interventions: Discharge Assessment Last Done: 08/30/24 22:05 MED/SURG & ICU Observation Charge Sheet Last Done: 08/31/24 00:07 Print Language: Iraqi Forms: Portal/Health Info Access Inst Follow-Ups: Delfin White MD [Primary Care Provider] - Discharge Date/Time: 08/30/24 22:05 Discharge Location: [facility]
== END 2024-08-30 22:05 | disposition short-term general hospital (02) ==
LOC: MS 07:43 → ED 07:43 → MS 16:06
PROVIDERS: ADMIT Family Medicine; ATTEND Family Medicine